=== PATIENT | male | born 1965 | race Caucasian/White ===

== ENCOUNTER 2024-03-13 18:09 | Emergency (ER) | payer BC ==
[~2024-03-13] VITALS: Ht 180.3 cm; Wt 76.6 kg
[2024-03-13 18:11] VITALS: TEMP 97.5
[2024-03-13] MEDS: LIDOCAINE 2% W/EPINEPHRINE 20ML VIAL **PRES FREE INJ ONE (18:36)
[2024-03-13] MEDS: BOOSTRIX VACCINE (TETANUS/DIPHTH/ACEL. PERTUSSIS) 0.5ML SYR IM ONE (18:38)
[2024-03-13] MEDS: fentaNYL 100 MCG/2 ML INJECTION IM ONE (19:05)
[2024-03-13 19:25] VITALS: BP 147/82; O2SAT 99
[2024-03-13] MEDS ORDERED: DOXY-441 PO (19:41)
[2024-03-13] MEDS: DOXYCYCLINE HYCLATE 100MG TABLET PO ONE (19:43)
== END 2024-03-13 20:11 | disposition home or self-care (01) ==
LOC: M ED 18:09
DX: S71.112A Laceration without foreign body, left thigh, initial encounter (principal); W29.3XXA Contact with powered garden and outdoor hand tools and machinery, initial encounter; K21.9 Gastro-esophageal reflux disease without esophagitis; N40.0 Benign prostatic hyperplasia without lower urinary tract symptoms; C32.9 Malignant neoplasm of larynx, unspecified; Z23 Encounter for immunization; Z88.0 Allergy status to penicillin; Z88.5 Allergy status to narcotic agent; Z88.6 Allergy status to analgesic agent; Z79.2 Long term (current) use of antibiotics; Y92.009 Unspecified place in unspecified non-institutional (private) residence as the place of occurrence of the external cause; Y93.89 Activity, other specified; Y99.9 Unspecified external cause status
CPT/HCPCS: 12004; 90471; 90715; 96374; 99284; J3010